=== PATIENT | female | born 1935 | race Caucasian/White ===

== ENCOUNTER 2019-07-20 18:14 | Emergency (ER) | payer MEDICARE ==
[~2019-07-20] VITALS: Ht 154.9 cm; Wt 52.2 kg
[2019-07-20 19:45] LABS: ALANINE AMINOTRANSFERASE 54 U/L (12-78); ALBUMIN 3.6 G/DL (3.4-5.0); ALBUMIN/GLOBULIN RATIO 0.8 (1.1-1.5); ALKALINE PHOSPHATASE 70 IU/L (46-116); ANION GAP 9 (8-16); ASPARTATE AMINO TRANSFERASE 59 U/L (10-37); BILIRUBIN,TOTAL 0.8 MG/DL (0.1-1.0); BLOOD UREA NITROGEN 17 MG/DL (7-18); BUN/CREATININE RATIO 19.1 (6.6-38.0); CALCIUM 8.8 MG/DL (8.5-10.1); CHLORIDE 105 MMOL/L (99-107); CREATININE 0.89 MG/DL (0.40-0.90); GLUCOSE 109 MG/DL (70-104); SODIUM 140 MMOL/L (135-145); TOTAL CARBON DIOXIDE 25.9 MMOL/L (24-32); TOTAL PROTEIN 8.1 G/DL (6.4-8.2); eGFR 61 ML/MIN
[2019-07-20 19:47] LABS: BASOPHILS # (AUTO) 0.1 X10'3 (0-0.2); BASOPHILS % (AUTO) 0.6 % (0-1); EOSINOPHILS # (AUTO) 0.2 X10'3 (0-0.9); EOSINOPHILS % (AUTO) 1.4 % (0-6); HEMATOCRIT 39.7 % (35.0-45.0); HEMOGLOBIN 13.5 g/dl (12.0-16.0); LYMPHOCYTES % (AUTO) 14.1 % (21-51); MEAN CORPUSCULAR HEMOGLOBIN 32.7 PG (27.0-31.0); MEAN CORPUSCULAR HGB CONC 33.9 g/dL (33.0-36.5); MEAN CORPUSCULAR VOLUME 96.6 FL (78-98); MEAN PLATELET VOLUME 8.1 FL (7.4-10.4); MONOCYTES % (AUTO) 7.1 % (2-12); NEUTROPHILS # (AUTO) 10.8 X10'3 (1.8-7.7); NEUTROPHILS % (AUTO) 76.8 % (42-75); PLATELET COUNT 336 X10'3 (140-440); RED BLOOD COUNT 4.11 X10'6 (4.20-5.60); RED CELL DISTRIBUTION WIDTH 13.3 % (11.5-14.5)
--- NOTE | 2019-07-20 22:24 | NUR ---
LAB AT BEDSIDE
[2019-07-20] MEDS ORDERED: FURO-150 PO (22:30)
[2019-07-20] MEDS ORDERED: POTA10CA44 PO (22:30)
[2019-07-20 22:50] VITALS: BP 156/65
== END 2019-07-20 22:45 | disposition home or self-care (01) ==
LOC: ER 18:15
DX: J81.1 Chronic pulmonary edema (principal); G89.29 Other chronic pain; Z86.73 Personal history of transient ischemic attack (TIA), and cerebral infarction without residual deficits; Z98.890 Other specified postprocedural states; Z95.0 Presence of cardiac pacemaker; Z79.899 Other long term (current) drug therapy
CPT/HCPCS: 36415; 71045; 80053; 83605; 83880; 84145; 84484; 85025; 87040; 93005; 99284

== ENCOUNTER 2021-02-01 08:57 | Day surgery (SDC) | payer MEDICARE ==
[2021-01-17 15:33] LABS: BASOPHILS # (AUTO) 0.1 X10'3 (0-0.2); BASOPHILS % (AUTO) 0.7 % (0-1); EOSINOPHILS # (AUTO) 0.1 X10'3 (0-0.9); EOSINOPHILS % (AUTO) 1.2 % (0-6); LYMPHOCYTES # (AUTO) 2.4 X10'3 (1.1-4.8); LYMPHOCYTES % (AUTO) 24.6 % (21-51); MEAN CORPUSCULAR HEMOGLOBIN 33.8 PG (27.0-31.0); MEAN CORPUSCULAR HGB CONC 34.1 g/dL (33.0-36.5); MEAN CORPUSCULAR VOLUME 98.9 FL (78-98); MEAN PLATELET VOLUME 7.9 FL (7.4-10.4); MONOCYTES # (AUTO) 1.1 X10'3 (0-0.9); MONOCYTES % (AUTO) 11.2 % (2-12); NEUTROPHILS # (AUTO) 6.1 X10'3 (1.8-7.7); NEUTROPHILS % (AUTO) 62.3 % (42-75); PRE OP HEMATOCRIT 44.1 % (35.0-45.0); PRE OP PLATELET COUNT 353 X10'3 (140-440); RED BLOOD COUNT 4.46 X10'6 (4.20-5.60); RED CELL DISTRIBUTION WIDTH 13.4 % (11.5-14.5)
[2021-01-17 15:55] LABS: ALBUMIN 3.6 G/DL (3.4-5.0); ALBUMIN/GLOBULIN RATIO 0.7 (1.1-1.5); ALKALINE PHOSPHATASE 82 IU/L (46-116); BLOOD UREA NITROGEN 35 MG/DL (7-18); BUN/CREATININE RATIO 31.3 (6.6-38.0); CALCIUM 9.4 MG/DL (8.5-10.1); CHLORIDE 104 MMOL/L (99-107); CREATININE 1.12 MG/DL (0.40-0.90); PRE OP ALT 23 U/L (30-65); PRE OP ANION GAP 10 (8-16); PRE OP AST 28 U/L (10-37); PRE OP BILIRUB, TOTAL 0.5 MG/DL (0.0-1.0); PRE OP GLUCOSE 96 MG/DL (70-104); PRE OP POTASSIUM 3.9 MMOL/L (3.4-5.1); PRE OP SODIUM 141 MMOL/L (135-145); TOTAL CARBON DIOXIDE 27.4 MMOL/L (24-32); TOTAL PROTEIN 8.8 G/DL (6.4-8.2); eGFR 46 ML/MIN
[~2021-02-01] VITALS: Ht 154.9 cm; Wt 49.9 kg
[2021-02-01] VITALS (8 sets, daily range): BP systolic 117–141; BP diastolic 72–80
[~2021-02-01 08:57] MED LIST: ALEN70TA80 PO; ATOR40TA72 PO; BUPIVAcaine/PF 2.5mg/ml (0.25%) 10ml vial ONE; DABI150C PO; DOCUMENT DATE & TIME OF BETA-BLOCKER PO ONE; FENO160T PO; FURO-150 PO; LOSA1TAB39 PO; POTA10TA36 PO; SOTA120T PO; cefazolin/dext.iso 2gm/100ml IV ONE; famotidine 20mg tablet PO ONE; ringers solution, lacted 1,000 ML IV SCH
[2021-02-01] MEDS ORDERED: LIDOcaine 0.5% (5mg/ml) 50ml vial ONE (11:32)
[2021-02-01] MEDS ORDERED: proCHLORperazine 10 MG/2 ml inj IV PRN (12:25)
[2021-02-01] MEDS ORDERED: ringers solution, lacted 1,000 ML IV SCH (12:25)
[2021-02-01] MEDS ORDERED: meperidine/PF 25mg/ml syringe IV PRN (12:25)
[2021-02-01] MEDS ORDERED: ondansetron/PF 4mg/2ml inj IV PRN (12:25)
[2021-02-01] MEDS ORDERED: morphine 4 MG/ML inj SYRINge IV PRN (12:25)
[2021-02-01] MEDS ORDERED: HYDROmorphone/PF 0.2 MG/ML SYRINGE IV PRN ×2 (12:25)
[2021-02-01] MEDS ORDERED: hydrALAZINE 20mg/ml inj. IV PRN (12:25)
[2021-02-01] MEDS ORDERED: acetaminophen 1,000mg/100ml IV 100 ML IV PRN (12:25)
[2021-02-01] MEDS ORDERED: morphine 2 MG/ML inj. syringe IV PRN (12:25)
[2021-02-01] MEDS ORDERED: labetalol 20mg/4ml (5mg/ml) syringe IV PRN (12:25)
[2021-02-01] MEDS ORDERED: midazolam 1 mg/ML 2ml injection ONE (12:41)
[2021-02-01] MEDS ORDERED: fentaNYL/PF 50MCG/1 ML 2ML syringe ONE (12:41)
[2021-02-01] MEDS ORDERED: propofol inj 20 ML IV ONE (13:01)
--- NOTE | 2021-02-01 13:07 | NUR ---
Received from OR via [facility] IN STABLE CONDITION, accompanied by Anesthesiologist and CERTIFIED CORPORATE TRAVEL EXECUTIVE report given by CERTIFIED CORPORATE TRAVEL EXECUTIVE AND Anesthesiolgist. Addendum: 02/01/21 at 1355 by Alicia Unger RN Amended: Links added.
--- NOTE | 2021-02-01 14:27 | NUR ---
PATIENT DISCHARGED FROM PACU AFTER DISCHARGE INSTRUCTIONS GIVEN. PATIENT GAVE VERBAL UNDERSTANDING OF INSTRUCTIONS GIVEN. PATIENT LEFT FACILITY VIA WHEELCHAIR WITH VOLUNTEER. Addendum: 02/01/21 at 1435 by Alicia Unger RN Amended: Links added.
== END 2021-02-01 14:27 | disposition home or self-care (01) ==
LOC: PAS 08:57
PROVIDERS: ATTEND Orthopaedic Surgery Hand Surgery
DX: G56.01 Carpal tunnel syndrome, right upper limb (principal); Z79.899 Other long term (current) drug therapy
CPT/HCPCS: 36415; 64721; 80053; 85025; 93005; J2001; J2250; J2704; J3010; J3490; Z7506; Z7512; A4215; A4615; J7120